=== PATIENT | male | born 1980 | race Two or more races ===

== ENCOUNTER 2021-11-29 10:42 | Emergency (ER) | payer OTHER, SELFPAY ==
--- NOTE | 2021-11-29 | ECG_ITS ---
Test Reason : MED CLEARANCE Blood Pressure : / mmHG Vent. Rate : 054 BPM Atrial Rate : 054 BPM P-R Int : 130 ms QRS Dur : 096 ms QT Int : 426 ms P-R-T Axes : 069 069 066 degrees QTc Int : 403 ms Sinus bradycardia Otherwise normal ECG No previous ECGs available Referred By: Muna Estrada Electronically Signed By:Froilan Bourgeois
--- NOTE | 2021-11-29 10:52 | ED_ITS ---
HPI - Psych General Chief Complaint: Psychiatric Symptoms Stated Complaint: crisis Time Seen by Provider: 11/29/21 10:52 Source: patient Mode of arrival: EMS Limitations: no limitations History of Present Illness HPI Narrative: 41-year-old male sent here from [facility] when he tried to check in today because he made statements that he would either ?detox or ?. The staff at [facility] misinterpreted patient's statement as suicidal ideation (per patient). He is here for crisis evaluation. Patient states that he is homeless, and uses 30-40 bags of heroin a day. States that he was only trying to express the severity of his addiction and the severity of loss of his quality of life and connection with his children due to his heroin addiction, he is not actually suicidal. Denies SI, HI, hallucinations to me at this time Last heroin use was 8:45 this morning, he checked in at [facility] at 09:00 complaint: feels depressed and substance abuse Duration: constant History of same: Yes Relieving factors: none Context: recent drug abuse Associated symptoms: denies other symptoms Related Data Home Medications Medication Instructions Recorded Confirmed No Known Home Meds 11/29/21 11/29/21 Allergies Allergy/AdvReac Type Severity Reaction Status Date / Time morphine Allergy Rash Verified 11/29/21 11:13 Review of Systems Constitutional: Constitutional: Denies body ache(s), Denies chills, Denies fatigue, Denies fever(s), Denies headache(s) and Denies weakness Eyes: Eyes: Denies diplopia ENT: Denies vertigo, Denies dizziness, Denies otalgia, Denies headache(s), Denies post nasal drip, Denies sinus pain, Denies sore throat and Denies throat swelling Cardiovascular: Cardiovascular: Denies chest pain, Denies syncope, Denies leg edema, Denies lightheadedness, Denies Loss of Consciousness, Denies palpitations and Denies dyspnea Respiratory: Respiratory: Denies chest congestion, Denies cough and Denies dyspnea Gastrointestinal: Gastrointestinal: Reports abdominal pain, Denies hematochezia, Denies constipation, Denies diarrhea and Denies vomiting Musculoskeletal: Musculoskeletal: Reports no additional musculoskeletal complaints Neurologic: Denies confusion, Denies vertigo, Denies dizziness, Denies syncope, Denies headache(s) and Denies weakness Psychiatric: Psychiatric: Denies confusion, Reports depression, Denies visual hallucinations, Denies hallucinations, Denies homicidal ideation and Denies suicidal ideation Comments: opioid abuse Endocrine: Endocrine: Denies fatigue and Denies palpitations Allergic/Immunologic: Allergic/Immunologic: Denies throat swelling PMFSH Social History Social History Advance Directives: No Advance Directives Information Provided: Yes Physical Exam Vital Signs: Vital Signs: Last Vital Signs Temp 98.3 F 11/29/21 11:13 Pulse 58 11/29/21 11:13 Resp 17 11/29/21 11:13 BP 86/48 L 11/29/21 11:13 Pulse Ox 99 11/29/21 11:13 BMI result Body Mass Index 20.0 Const: General: no acute distress, alert and awake; No confusion Nutritional Appearance: thin Orientation/consciousness: patient oriented x3 and No confusion Limitations: no limitations HENMT: Head: Yes normal to inspection, Yes normocephalic and Yes atraumatic Ears: hearing grossly normal bilaterally, external ears normal, TM's normal bilaterally and EAC's normal General nose exam: Normal external nose present Face and sinus: Yes normal facial exam and Yes sinuses nontender Mouth: Normal oral and palatal mucosa present Throat: Yes posterior oropharynx normal Eyes: Conjunctivae: conjunctivae normal Pupils: Equal, round and reactive pupils present EOM: EOMs intact bilaterally Neck: Neck: Yes full ROM, Yes no lymphadenopathy and Yes supple Resp: Effort & Inspection: normal respiratory effort and able to speak in complete sentences Auscultation: clear to auscultation bilaterally, no crackles, no rales, no rhonchi and no wheezes Cardio: Rate: regular rate Rhythm: regular rhythm Heart sounds: S1 normal heart sound present and S2 normal heart sound present GI: Inspection: Yes normal to inspection Palpation (GI): Soft to palpation, nontender, no guarding and not rigid Percussion: Yes normal to percussion Auscultation: normal bowel sounds Skin: Other: Small wound proximal posterior thigh Neuro: General: patient oriented x3 and No confusion Cranial nerves: Yes Equal, round and reactive pupils present Extrem: General: Yes normal to inspection and Yes full ROM Psych: Appearance: grossly normal Affect: normal affect Attitude: cooperative Thought process: Normal thought process present Course Course Course Narrative: 41-year-old male presents for statements that were interpreted as SI when he was checking into [facility] to treat his heroin abuse. On exam, patient is pleasant and cooperative, patient has intact neurological exam, patient is thin with track hamilton. Patient has a mild leukocytosis 11.3, mild anemia. Urine tox positive for opioids, fentanyl, cocaine. Patient is COVID negative. Awaiting chemistry Reevaluation(s) Reevaluation #1: Chemistry unremarkable. community living coach has seen patient. Patient cleared by crisis and will be transferred to [facility] Time: 16:41 MDM - Psych Lab Data Result diagrams: 11/29/21 15:17 11/29/21 15:17 Labs: Lab Results 11/29/21 11/29/21 11/29/21 Range/Units 11:26 15:17 15:17 WBC 11.3 H (4.8-10.8) X10*3/uL RBC 4.14 L (4.60-5.80) X10*6/uL Hgb 12.4 L (14.0-18.0) g/dl Hct 36.6 L (42.0-52.0) % MCV 88.4 (80.0-98.0) fL MCH 30.0 (27.0-33.0) pg MCHC 33.9 (31.0-36.0) g/dl RDW 12.9 (11.0-16.0) % Plt Count 213 (160-400) X10*3/uL MPV 10.7 (9.4-12.4) fL Immature Gran % (Auto) 0.4 (0.0-0.4) % Neut % (Auto) 79.6 H (45-73) % Lymph % (Auto) 12.1 L (20-40) % Mineral % (Auto) 6.9 (2-11) % Eos % (Auto) 0.8 (0-4) % Baso % (Auto) 0.2 (0-2) % Lymph # (Auto) 1.4 (1.2-4.9) X10*3/uL Mineral # (Auto) 0.8 (0.1-1.2) X10*3/uL Eos # (Auto) 0.1 (0.0-0.4) X10*3/uL Baso # (Auto) 0.0 (0.0-0.2) X10*3/uL Abs Immat Gran (auto) 0.04 H (0.00-0.03) X10*3/uL Absolute Neuts (auto) 9.0 H (2.0-8.3) x10*3/uL Absolute Nucleated RBC 0.000 (0.0-0.012) X10*3/uL Nucleated RBC % (auto) 0.0 (0.0-0.2) /100WBC Sodium 139 (135-145) mmol/L Potassium 4.1 (3.3-5.1) mmol/L Chloride 104 (96-108) mmol/L Carbon Dioxide 26 (22-29) mmol/L Anion Gap 13 (12-20) BUN 20 H (9-16) mg/dL Creatinine 0.86 (0.5-1.4) mg/dL Estim Creat Clear Calc 108.4 Estimated GFR > 60 Random Glucose 128 H (60-115) mg/dL Calcium 9.2 (8.4-10.2) mg/dL Total Bilirubin 0.4 (0.0-1.0) mg/dL AST 15 (5-37) U/L ALT 14 (0-40) U/L Alkaline Phosphatase 54 (39-117) U/L Total Protein 6.3 L (6.5-8.0) g/dL Albumin 4.0 (3.5-5.0) g/dL Urine Opiates Screen (Not Detect) Urine Fentanyl Screen (Not Detect) Ur Barbiturates Screen (Not Detect) Ur Phencyclidine Scrn (Not Detect) Ur Amphetamines Screen (Not Detect) U Benzodiazepines Scrn (Not Detect) Urine Cocaine Screen (Not Detect) U Marijuana (THC) Screen (Not Detect) Ethyl Alcohol mg/dL COVID-19 (ROLY) Negative (Negative) COVID-19 Clin Com See Note 11/29/21 11/29/21 Range/Units 15:17 Unknown WBC (4.8-10.8) X10*3/uL RBC (4.60-5.80) X10*6/uL Hgb (14.0-18.0) g/dl Hct (42.0-52.0) % MCV (80.0-98.0) fL MCH (27.0-33.0) pg MCHC (31.0-36.0) g/dl RDW (11.0-16.0) % Plt Count (160-400) X10*3/uL MPV (9.4-12.4) fL Immature Gran % (Auto) (0.0-0.4) % Neut % (Auto) (45-73) % Lymph % (Auto) (20-40) % Mineral % (Auto) (2-11) % Eos % (Auto) (0-4) % Baso % (Auto) (0-2) % Lymph # (Auto) (1.2-4.9) X10*3/uL Mineral # (Auto) (0.1-1.2) X10*3/uL Eos # (Auto) (0.0-0.4) X10*3/uL Baso # (Auto) (0.0-0.2) X10*3/uL Abs Immat Gran (auto) (0.00-0.03) X10*3/uL Absolute Neuts (auto) (2.0-8.3) x10*3/uL Absolute Nucleated RBC (0.0-0.012) X10*3/uL Nucleated RBC % (auto) (0.0-0.2) /100WBC Sodium (135-145) mmol/L Potassium (3.3-5.1) mmol/L Chloride (96-108) mmol/L Carbon Dioxide (22-29) mmol/L Anion Gap (12-20) BUN (9-16) mg/dL Creatinine (0.5-1.4) mg/dL Estim Creat Clear Calc Estimated GFR Random Glucose (60-115) mg/dL Calcium (8.4-10.2) mg/dL Total Bilirubin (0.0-1.0) mg/dL AST (5-37) U/L ALT (0-40) U/L Alkaline Phosphatase (39-117) U/L Total Protein (6.5-8.0) g/dL Albumin (3.5-5.0) g/dL Urine Opiates Screen POSITIVE H (Not Detect) Urine Fentanyl Screen POSITIVE H (Not Detect) Ur Barbiturates Screen Not Detected (Not Detect) Ur Phencyclidine Scrn Not Detected (Not Detect) Ur Amphetamines Screen Not Detected (Not Detect) U Benzodiazepines Scrn Not Detected (Not Detect) Urine Cocaine Screen POSITIVE H (Not Detect) U Marijuana (THC) Screen Not Detected (Not Detect) Ethyl Alcohol < 10 mg/dL COVID-19 (ROLY) (Negative) COVID-19 Clin Com Discharge Plan Discharge Clinical Impression: Opioid abuse Patient Disposition: Xfer Other Transfer Details: [facility] Prescriptions: No Action No Known Home Meds 0RF
[2021-11-29 11:13] VITALS: BP 120/80; BP 86/48; PULSE 58; PULSE 65; RESP 17; TEMP 36.8; O2SAT 95; O2SAT 99
[2021-11-29 12:12] LABS: Amphetamine Screen Urine Not Detected (Not Detect); Barbiturates, Urine Not Detected (Not Detect); Benzodiazepines Screen Urine Not Detected (Not Detect); Cannabinoid Screen Urine Not Detected (Not Detect); Cocaine Screen Urine POSITIVE (Not Detect); Fentanyl, urine POSITIVE (Not Detect); Opiate Screen Urine POSITIVE (Not Detect); Phencyclidine Screen Urine Not Detected (Not Detect)
[2021-11-29 12:35] LABS: COVID-19 Test Negative (Negative); IDNOW Serial# 9DD0AD1C
--- NOTE | 2021-11-29 13:18 | MHC.CARE ---
Pt is a 41 y/o Estonian speaking male who is previously unknown to the CARE Team.? Today, pt self-presented to [facility] for [facility].? He stated to them, I'm at the end of my rope. [facility] then sent pt here to be screened for crisis.?? Pt reports that he is a heroin and cocaine user, he has nothing or no one, ?Just the clothes on my back.?? He reports being tired of the way he has been living and is seeking detox.? When asked about his statement I'm at the end of my rope. , he states that was in the context of his drug use and present condition his life has fallen to.? He stated that this was his expression that he recognizes a change must be made.? Pt denies SI, HI, , AVH, and thoughts of self-harm.? He asks for recovery resources and help securing those resources. CARE Team will contact the Recovery Team to refer pt.
--- NOTE | 2021-11-29 13:28 | MHC.RECOVSUP ---
Recovery Support note: Patient is a 41 year old Angolan speaking male who presented to [facility] seeking detox and made a vaguely suicidal remark. Patient was sent by EMS to [facility] [place] crisis [place]. Patient was seen by CARE Team and referred to this justowriter operator for assistance with ATS referrals. Patient reported to this justowriter operator that he is using up to 60 bags of heroin a day, IV. Patient also reports using cocaine and denies alcohol use. Patient has previously found Suboxone and methadone helpful however reports he has not been on either in over a year. Patient continues to deny SI and expresses interest in going to ATS. This justowriter operator will assist patient in referring to ATS facilities.
[2021-11-29 15:43] LABS: MANUAL DIFF FLAG NO
[2021-11-29 15:48] LABS: Basophils Percent Auto 0.2 % (0-2); Eosinophils Absolute Auto 0.1 X10*3/uL (0.0-0.4); Eosinophils Percent Auto 0.8 % (0-4); Hematocrit 36.6 % (42.0-52.0); Hemoglobin 12.4 g/dl (14.0-18.0); Imm Gran Abs Auto 0.04 X10*3/uL (0.00-0.03); Imm Gran Pct Auto 0.4 % (0.0-0.4); Lymphocytes Absolute Auto 1.4 X10*3/uL (1.2-4.9); Lymphocytes Percent Auto 12.1 % (20-40); Mean Corpuscular HGB Conc 33.9 g/dl (31.0-36.0); Mean Corpuscular Volume 88.4 fL (80.0-98.0); Mean Platelet Volume 10.7 fL (9.4-12.4); Monocytes Absolute Auto 0.8 X10*3/uL (0.1-1.2); Monocytes Percent Auto 6.9 % (2-11); Neutrophils Percent Auto 79.6 % (45-73); Platelet Count 213 X10*3/uL (160-400); Red Blood Count 4.14 X10*6/uL (4.60-5.80); Red Cell Distribution Width 12.9 % (11.0-16.0); White Blood Count 11.3 X10*3/uL (4.8-10.8)
--- NOTE | 2021-11-29 15:55 | PC.NURSE ---
Patient is resting comfortably in bed waiting to be seen by [facility]. Denies any pain or discomfort at this time.
[2021-11-29 16:02] LABS: Ethanol < 10 mg/dL
[2021-11-29 16:04] LABS: Chloride 104 mmol/L (96-108); Potassium 4.1 mmol/L (3.3-5.1); Sodium 139 mmol/L (135-145)
[2021-11-29 16:05] LABS: Alanine Aminotransferase 14 U/L (0-40); Alkaline Phosphatase 54 U/L (39-117); Anion Gap 13 (12-20); Aspartate Amino Transferase 15 U/L (5-37); Bilirubin Total 0.4 mg/dL (0.0-1.0); Blood Urea Nitrogen 20 mg/dL (9-16); Calcium 9.2 mg/dL (8.4-10.2); Carbon Dioxide 26 mmol/L (22-29); Creatinine Clr Calc Pharmacy 108.4; Estimated Glomerular Filt Rate > 60; Glucose Random 128 mg/dL (60-115); Total Protein 6.3 g/dL (6.5-8.0)
--- NOTE | 2021-11-29 16:09 | PC.NURSE ---
Patient was seen by care team this am and was screened out for [facility]. Patient is now a detox bed search.
--- NOTE | 2021-11-29 16:49 | PC.NURSE ---
Patient is alert and oriented spoke with recovery is being discharged and transported back to [facility] verbalized understanding of discharge instruction
--- NOTE | 2021-11-29 17:28 | MHC.RECOVSUP ---
Recovery Support note: Patient accepted to [facility] and transported to facility via [employer].
== END 2021-11-29 16:50 | disposition other institution (70) ==
PROVIDERS: Physician Assistant; Emergency Provider Emergency Medicine Emergency Medical Services
DX: F11.10 Opioid abuse, uncomplicated (principal); F32.A Depression, unspecified; Z20.822 Contact with and (suspected) exposure to COVID-19
CPT/HCPCS: 80053; 80307; 82077; 85025; 87635; 93005; 99282; 99284